=== PATIENT | male | born 1995 | race Caucasian/White ===

== ENCOUNTER 2024-08-07 18:24 | Emergency (ER) | payer BC, SELFPAY ==
[2024-08-07 18:43] VITALS: BP 157/103
[2024-08-07 19:02] LABS: % Basophils 0.6 % (0-2); % Eosinophils 1.8 % (0-6); % Immature Granulocytes 0.2 % (0-0.5); % Lymphocytes 21.6 % (20.5-51.1); % Monocytes 5.4 % (1.7-9.3); % Neutrophils 70.4 % (42.2-75.2); Absolute Basophils 0.1 10^3/uL (0-0.2); Absolute Eosinophils 0.2 10^3/uL (0-0.7); Absolute Lymphocytes 1.8 10^3/uL (1.2-3.4); Absolute Monocytes 0.4 10^3/uL (0.1-0.6); Absolute Neutrophils 5.7 10^3/uL (1.4-6.5); Hematocrit 46.2 % (39.0-52.0); Mean Corp Hgb Conc. 34.6 g/dL (33.0-37.0); Mean Corpuscular Hgb 29.1 pg (27.0-31.0); Mean Corpuscular Volume 84.2 fL (80.0-94.0); Mean Platelet Volume 9.5 fL (7.4-10.4); Nucleated Red Blood Cells % 0 % (-); Platelet Count 284 10^3/uL (130-400); Red Blood Cell Count 5.49 10^6/uL (4.70-6.10); Red Cell Dist. Width 11.9 % (11.5-14.5); White Blood Cell Count 8.1 10^3/uL (4.8-10.8)
[2024-08-07 19:17] LABS: ALT (SGPT) 61 U/L (0-50); AST (SGOT) 47 U/L (17-59); Albumin 5.2 g/dl (3.5-5.0); Alkaline Phosphatase 52 U/L (38-126); Blood Urea Nitrogen 16 mg/dl (9-20); Calcium 10.1 mg/dl (8.4-10.2); Carbon Dioxide 25 mmol/L (22-30); Chloride 99 mmol/L (98-107); Glucose 103 mg/dl (70-99); Lipase 91 U/L (23-300); Potassium 4.8 mmol/L (3.5-5.1); Sodium 138 mmol/L (135-145); Total Bilirubin 1.1 mg/dl (0.2-1.3); Total Protein 7.9 g/dl (6.3-8.2); eGFR > 60.00
[2024-08-07 19:29] LABS: Troponin I < 0.012 ng/ml
--- NOTE | 2024-08-07 23:11 | ED.GENMED ---
History of Present Illness
General
Chief Complaint: Dizziness
Source: patient and spouse
Exam Limitations: none
Time Seen by Provider: 08/07/24 21:18
Nursing documentation reviewed up to this point in time: agreed with
History of Present Illness
History of Present Illness:
28-year-old male with no reported chronic medical issues presents to the emergency room for evaluation of lightheadedness. Patient reports that symptoms started this afternoon and have been intermittent since then. 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 He says that around 3:30 PM he was walking his route and began to feel very weak in his legs and lightheaded. He says that he went back to his office and rested and ultimately went home. He says he has
had intermittent symptoms since then and decided to come to the ER to be evaluated. Has not noticed any clear trigger for the symptoms. He says that they usually last for a few moments and then passed quite quickly. He denies any
spinning/vertiginous symptoms. No nausea or vomiting. He denies any chest pain or palpitations associated with the symptoms however he has had occasional palpitations generally speaking over the past year. He denies any shortness of breath. He
denies any headache, vision changes, speech issues. He does note that he had an intense episode about 2 weeks ago where he laughed very hard and this caused him to cough and he had a prolonged 10 to 15-minute episode of severe lightheadedness and
whole body paresthesias that she is concerned that this episode may have triggered some issue causing his symptoms today. He does note family history of brain aneurysm in his aunt and 'strong cardiac history' on both sides of his family.
Review of Systems
Review of Systems
All Other Systems: ROS reviewed and negative except as documented in HPI and ROS
Constitutional: Denies fever
Respiratory: Denies trouble breathing
Cardiac: Reports palpitations; Denies chest pain or diaphoresis
ABD/GI: Denies abdominal pain, nausea or vomiting
: Denies flank pain
Musculoskeletal: Denies neck pain or back pain
Neurological: Reports dizzy; Denies headache
Phy Exam
Physical Exam
Physical Exam:
General: Awake, alert, oriented x3; no acute distress
Head: Normocephalic, atraumatic
Eyes: Conjunctiva normal, EOMI without nystagmus, negative [place], pupils equal round and reactive to light bilaterally
Throat: Airway intact, handling secretions
Neck: Trachea midline, supple without meningismus
Lungs: Clear to auscultation bilaterally, no wheezing, rales, rhonchi
Heart: Regular rate and rhythm, no murmurs, gallops, or rubs
Abd: Soft, non distended, nontender with no masses
Neuro: Cranial nerves intact 2 through 12, speech fluid without dysarthria or aphasia, no limb ataxia, motor and sensory intact in all extremities
Extremities: No edema in extremities, equal pulses in all extremities
Scores
Heart Failure Risk
Heart Failure Risk Score: Not Applicable
Heart Score for Chest Pain Patients
STEMI patient?: Not applicable
Withdrawal Assessment of Alcohol
Withdrawal Assessment Completed?: Not applicable
Course
Orders/Labs/Results
Orders:
Orders
08/07/24 18:26
Electrocardiogram (*1) Urgent
Reason for Study: Vertigo / Dizzy
EKG- Treatment ONCE
08/07/24 18:55
Complete Blood Count/With Diff Urgent
Comprehensive Metabolic Panel Urgent
Lipase Urgent
TSH Urgent
Troponin I Urgent
08/07/24 21:29
Electrocardiogram (*1) Urgent
Reason for Study: Vertigo / Dizzy
EKG- Treatment ONCE
08/07/24 22:16
CT Head & Neck Angio W/wo IV Urgent
Comment:
Reason For Exam: dizziness s/p valsalva
Abnormal Lab Results
08/07/24
18:55
Glucose 103 H mg/dl
(70-99)
ALT 61 H U/L
(0-50)
Albumin 5.2 H g/dl
(3.5-5.0)
08/07/24 18:55
08/07/24 18:55
Vital Signs
Initial and Last Documented VS:
Initial Vital Signs
Temp Pulse Resp BP Pulse Ox
36.9 C 82 16 157/103 99
08/07/24 18:43 08/07/24 18:43 08/07/24 18:43 08/07/24 18:43 08/07/24 18:43
Last Documented Vital Signs
Temp Pulse Resp BP Pulse Ox
36.9 C 65 20 157/103 99
08/07/24 18:43 08/07/24 22:45 08/07/24 22:45 08/07/24 18:43 08/07/24 18:43
MDM/Problems Addressed
Differential Diagnosis Includes:
Wide differential diagnosis includes dysrhythmia, anemia, electrolyte derangement, atypical vertigo/inner ear issue, vertebral dissection, valvular issue, dehydration
MDM/Problems Addressed:
28-year-old male presents for evaluation of intermittent dizziness all day today started around 3:30 PM after an intense episode during which she felt very lightheaded and weak in the legs. He had similar issue after Valsalva 2 weeks ago. Vitals
and exam as above. Will send labs including a CBC and a CMP, troponin, thyroid studies. Check CTA head and neck in an abundance of caution given symptoms after Valsalva to rule out signs of vertebral dissection. Check circuit breaker supervisor on telemetry.
Reassess.
Labs reviewed: CBC unremarkable, CMP no clinically significant abnormalities. Troponin undetectable. Thyroid studies normal. CTA head and neck negative for any acute pathology. EKG initially limb lead reversal but follow-up shows sinus rhythm no
ectopy, no QT prolongation, no [place]rug[place], no delta wave. Patient has been stable on telemetry throughout ED observation. Very low suspicion for emergent pathology at this point in time. I think he is stable for discharge to follow-up with primary
care physician. He feels comfortable this plan. Spoke about return precautions all questions answered.
*Radiology
Radiology exam reviewed: radiology read reviewed
*Pulse Oximetry
Patient hypoxic: no
*EKG
Interpreted by ED Provider?: Yes
Heart Rate: 65
Rate: normal
Rhythm: sinus
[place]: normal axis
Interval: normal interval
QRS Pattern: normal QRS
Ischemia: no ischemia
*Critical Care Note
Total Time (30-74mins, 75-104mins- exclusive of procedures): Not Applicable
Data Reviewed
Review of Other/Old Records Reveals: Labs and Records
Source: patient and spouse
ED Attending Note
-
Portions of this chart may have been created with voice recognition software.� Occasional wrong word or��sound alike� substitutions may have occurred due to the inherent limitations of voice recognition software.
Discharge Plan
Departure
Patient Disposition: Home (Routine Discharge)
Date of Disposition: 08/07/24
Time of Disposition: 23:18
Patient with high blood pressure during this ER visit?: Yes
Discharge Problem:
Dizziness
Instructions: Dizziness
Referrals:
NONE,* [Family Provider] -
Activity Restrictions/Additional Instructions:
Thank you for visiting the Emergency Department at [facility].
1. Please schedule a follow up appointment as directed. Call first thing tomorrow morning to make an appointment.
2. If indicated, please take your medications as instructed and indicated on discharge paperwork.
3. If any of your symptoms do not improve, or persist, or become more severe within 6-12 hours, please return to the emergency department for further care.
4. Please return to the emergency department if you develop a headache, neck pain/stiffness, fever greater than 100.4F, chest pain, shortness of breath, persistent nausea, vomiting, slurred speech, difficulty walking, numbness/tingling, weakness,
signs of infection or any other symptoms that are worrisome to you.
Please call [phone] if you have any questions.
Interventions
Interventions:
*Risk Screen - Suicide Last Done: 08/07/24 18:43
*General Assessment Last Done: 08/07/24 18:43
*Neglect/Abuse Screening Last Done: 08/07/24 18:43
*ED COVID-19 Vaccine History Last Done: 08/07/24 18:43
ED- Neurological Assessment Last Done: 08/07/24 22:43
ED Swallowing Screen Last Done: 08/07/24 22:43
Discharge Date and Time
Print Language: ARGENTINE
[2024-08-07 23:34] VITALS: BP 131/93
== END 2024-08-07 23:53 | disposition home or self-care (01) ==
LOC: EMR 18:24
PROVIDERS: Emergency Medicine; EMERGENCY PHYSICIAN Emergency Medicine
DX: R42 Dizziness and giddiness (principal); R53.1 Weakness; R00.2 Palpitations; R03.0 Elevated blood-pressure reading, without diagnosis of hypertension
CPT/HCPCS: 99284; 70496; 70498; 80053; 83690; 84443; 84484; 85025; 93005; Q9967